=== PATIENT | male | born 1990 | race African-American/Black ===

== ENCOUNTER 2016-10-09 15:40 | Emergency (ER) | payer MEDICAID ==
[~2016-10-09] VITALS: Ht 175.3 cm; Wt 75.0 kg
[2016-10-09] MEDS ORDERED: SODIUM CHLORIDE 0.9% 1,000 ML IV ONE ×2 (15:57→18:22)
[2016-10-09 16:25] LABS: BASOPHILS % 0.2 % (0.0-2.0); HEMOGLOBIN. 13.2 g/dL (14.0-18.0); LYMPHOCYTES % 12.6 % (20.0-50.0); MEAN CORPUSCULAR HEMOGLOBIN 29.8 pg (28.0-32.0); MEAN CORPUSCULAR HGB CONC 33.9 g/dL (31.0-37.0); MEAN CORPUSCULAR VOLUME 87.8 fL (80.0-94.0); MEAN PLATELET VOLUME 8.2 fl (7.4-10.4); MONOCYTES % 11.3 % (2.0-8.0); NEUTROPHILS % 75.9 % (40.0-76.0); PLATELET 174 x1000/uL (130-400); RED BLOOD CELL COUNT 4.44 mill/uL (4.7-6.1); RED CELL DISTRIBUTION WIDTH 13.3 % (11.6-14.6); WHITE BLOOD COUNT 9.7 x1000/uL (4.5-11.0)
[2016-10-09 16:28] LABS: CHLORIDE 97 mEq/L (98-107); INDEX HEMOLYSI 2 (1-3); INDEX ICTERIC 1 (1-4); INDEX LIPEMIC 1 (1-3)
[2016-10-09 16:35] LABS: ACETAMINOPHEN < 2 ug/mL (10-30); ANION GAP 14; CALCIUM 9.1 mg/dL (8.5-10.1); CARBON DIOXIDE 30 mEq/L (21-32); ETHANOL BLOOD < 10 mg/dL; UREA NITROGEN BLOOD 12 mg/dL (7-21); eGFR > 60 mL/min (>60)
[2016-10-09] MEDS ORDERED: LORAZEPAM 2MG/ML CPJ IM ONE (17:15)
[2016-10-09 17:17] LABS: ALBUMIN 4.2 g/dL (3.4-5.0); BILIRUBIN DIRECT 0.1 mg/dL (0.0-0.2)
[2016-10-09 21:14] LABS: *AMPHETAMINES SCREEN URINE PRESUMTIVE POSITIVE (NEGATIVE); *BARBITURATES SCREEN URINE NEGATIVE (NEGATIVE); *BENZODIAZEPINES SCREEN URINE NEGATIVE (NEGATIVE); *COCAINE SCREEN URINE PRESUMTIVE POSITIVE (NEGATIVE); CANNABINOID URINE SCREEN NEGATIVE (NEGATIVE); ECSTASY MDMA SCREEN URINE NEGATIVE (NEGATIVE); METHADONE URINE SCREEN NEGATIVE (NEGATIVE); OPIATES URINE SCREEN PRESUMTIVE POSITIVE (NEGATIVE); PHENCYCLIDINE URINE SCREEN PRESUMTIVE POSITIVE (NEGATIVE)
[2016-10-10 11:02] VITALS: BP 131/66
== END 2016-10-10 11:03 | disposition home or self-care (01) ==
LOC: ER 15:41 → EDSEX 15:41 → ER 10-10 11:03
DX: T40.5X1A Poisoning by cocaine, accidental (unintentional), initial encounter (principal); T50.901A Poisoning by unspecified drugs, medicaments and biological substances, accidental (unintentional), initial encounter; G92 Toxic encephalopathy; Y93.89 Activity, other specified; Y99.8 Other external cause status; Y92.89 Other specified places as the place of occurrence of the external cause
CPT/HCPCS: 36415; 71010; 80048; 80076; 80305; 80307; 80329; 85025; 96361; 96374; 99285; G0482; J2060; J7030; Z7610

== ENCOUNTER 2020-04-03 12:14 | Emergency (ER) | payer MEDICAID ==
[~2020-04-03] VITALS: Ht 182.9 cm; Wt 74.0 kg
[2020-04-03 12:20] VITALS: BP 114/72
[2020-04-03] MEDS ORDERED: haldol (12:20)
== END 2020-04-03 14:55 | disposition home or self-care (01) ==
LOC: ER 12:25
DX: B34.9 Viral infection, unspecified (principal); M79.10 Myalgia, unspecified site; F20.9 Schizophrenia, unspecified; R73.03 Prediabetes; F17.210 Nicotine dependence, cigarettes, uncomplicated; Z87.820 Personal history of traumatic brain injury
CPT/HCPCS: 71045; 93005; 99283

== ENCOUNTER 2022-06-04 23:48 | Emergency (ER) | payer MEDICAID ==
[~2022-06-04] VITALS: Ht 177.8 cm; Wt 70.0 kg
[~2022-06-04 23:48] MED LIST: haldol
[2022-06-04 23:57] VITALS: BP 158/90
== END 2022-06-05 02:38 | disposition left against medical advice (07) ==
LOC: ER 23:59
DX: F91.8 Other conduct disorders (principal)
CPT/HCPCS: 99283

== ENCOUNTER 2022-08-05 14:50 | Emergency (ER) | payer MEDICAID ==
[~2022-08-05] VITALS: Ht 182.9 cm; Wt 59.0 kg
[2022-08-05 15:01] VITALS: BP 133/81
== END 2022-08-05 15:45 | disposition home or self-care (01) ==
LOC: ER 14:50
DX: T43.621A Poisoning by amphetamines, accidental (unintentional), initial encounter (principal); F20.9 Schizophrenia, unspecified; Y92.89 Other specified places as the place of occurrence of the external cause
CPT/HCPCS: 99283